=== PATIENT | female | born 1945 | race Caucasian/White ===

== ENCOUNTER 2024-03-27 10:34 | Inpatient (IN) ==
[2024-03-27] MEDS ORDERED: IOPAMIDOL 100 ML BOTTLE IV ONE (10:35)
[2024-03-27 11:39] LABS: Basophils # (Auto) 0 K/mcL (0.00-0.30); Basophils % (Auto) 0 % (0.0-2.0); Eosinophils # (Auto) 0 K/mcL (0.00-0.70); Eosinophils % (Auto) 0 % (0.0-7.0); Hematocrit 35.1 % (34.1-44.9); Hemoglobin 11.3 g/dL (11.2-15.7); Lymphocytes # (Auto) 0.12 K/mcL (1.50-4.80); Lymphocytes % (Auto) 1.2 % (15.5-49.0); Mean Cell Volume 95.6 fL (80.0-100.0); Mean Corpuscular HGB Conc 32.2 g/dL (31.0-36.0); Mean Platelet Volume 9.4 fL (8.8-12.5); Monocytes # (Auto) 0.22 K/mcL (0.10-0.90); Monocytes % (Auto) 2.3 % (1.0-12.0); Neutrophils % (Auto) 96.4 % (38.0-78.0); Platelet Count 196 K/mcL (140-440); RBC 3.67 M/mcL (3.59-5.38); Red Cell Distribution Width 14.6 % (11.5-14.5); WBC 9.7 K/mcL (4.5-11.0)
[2024-03-27 11:59] LABS: ALT/SGPT 11 U/L (<40); AST/SGOT 24 U/L (<32); Albumin 3.1 gm/dL (3.2-5.2); Alkaline Phosphatase 60 U/L (39-117); Bilirubin,Total 1.9 mg/dL (0.1-1.0); Blood Urea Nitrogen 27 mg/dL (8-23); Calcium 8.8 mg/dL (8.6-10.4); Carbon Dioxide 27 mmol/L (22-30); Chloride 100 mmol/L (96-108); Creatine Kinase 77 U/L (24-170); Globulin 3.1 gm/dL (2.2-3.7); Glomerular Filtration Rate 69; Glucose 113 mg/dL (70-105); INR 1.1 (0.9-1.1); Potassium 4.3 mmol/L (3.3-5.1); Prothrombin Time 14.6 sec (11.9-14.5); Sodium 138 mmol/L (133-145)
[2024-03-27 12:22] LABS: Appearance,Urine Clear (Clear); Bacteria,Urine Few /hpf (0); Bilirubin,Urine Moderate mg/dL (Negative); Color,Urine Amber; Glucose,Urine (UA) 100 mg/dL (Negative); Ketones,Urine 15 mg/dL (Negative); Leukocyte Esterase,Urine Negative /uL (Negative); Nitrate,Urine Negative (Negative); PH,Urine 5.5 (5.0-9.0); Protein,Urine 30 mg/dL (Negative); Urine Blood Negative ery/mcL (Negative); Urine RBC 0 /hpf (0-3); Urine Squamous Epithelial Cell 0 /hpf (0-4); Urine WBC 0 /hpf (0-4)
[2024-03-27 12:27] LABS: Free T4 (Free Thyroxine) 0.97 ng/dL (0.93-1.70)
[2024-03-27] MEDS: cefTRIAXone 1 GM VIAL IV ONE (13:34)
[2024-03-27] MEDS: AZITHROMYCIN 500 MG in DEXTROSE 5% IN WATER 250 ML IV ONE (15:17)
[2024-03-27] MEDS: DEXTROSE 5%-NS 1,000 ML IV SCH (15:56)
[2024-03-27] MEDS: DOXYCYCLINE 100 MG in DEXTROSE 5% IN WATER 100 ML IV SCH ×2 (15:59→17:59)
[2024-03-27] MEDS: THIAMINE 100 MG in 0.9 % SODIUM CHLORIDE 50 ML IV ONE (16:35)
[2024-03-27] MEDS ORDERED: ACETAMINOPHEN 325 MG TABLET PO PRN (16:53)
[2024-03-27] MEDS ORDERED: IPRATROPIUM/ALBUTEROL 3 ML AMPUL.NEB NEB PRN (16:53)
[2024-03-27 17:19] LABS: Free T4 (Free Thyroxine) 0.91 ng/dL (0.93-1.70); Phosphorous 3.1 mg/dL (2.5-4.5); Thyroid Stimulating Hormone 3.65 uIU/mL (0.27-5.01)
[2024-03-27] MEDS: 0.9 % SODIUM CHLORIDE 10 ML SYRINGE IV SCH (20:34)
[2024-03-28 07:10] LABS: Basophils # (Auto) 0 K/mcL (0.00-0.30); Basophils % (Auto) 0 % (0.0-2.0); Eosinophils # (Auto) 0.01 K/mcL (0.00-0.70); Eosinophils % (Auto) 0.1 % (0.0-7.0); Hematocrit 29.5 % (34.1-44.9); Hemoglobin 10.1 g/dL (11.2-15.7); Lymphocytes # (Auto) 0.35 K/mcL (1.50-4.80); Lymphocytes % (Auto) 4.7 % (15.5-49.0); Mean Cell Volume 89.7 fL (80.0-100.0); Mean Corpuscular HGB Conc 34.2 g/dL (31.0-36.0); Mean Platelet Volume 8.8 fL (8.8-12.5); Monocytes % (Auto) 2.7 % (1.0-12.0); Neutrophils % (Auto) 92.4 % (38.0-78.0); Platelet Count 192 K/mcL (140-440); RBC 3.29 M/mcL (3.59-5.38); Red Cell Distribution Width 14.5 % (11.5-14.5); WBC 7.5 K/mcL (4.5-11.0)
[2024-03-28 07:26] LABS: ALT/SGPT 9 U/L (<40); AST/SGOT 15 U/L (<32); Albumin 2.6 gm/dL (3.2-5.2); Alkaline Phosphatase 57 U/L (39-117); Bilirubin,Direct 0.4 mg/dL (<0.3); Bilirubin,Total 0.6 mg/dL (0.1-1.0); Blood Urea Nitrogen 20 mg/dL (8-23); Carbon Dioxide 25 mmol/L (22-30); Chloride 107 mmol/L (96-108); Globulin 2.5 gm/dL (2.2-3.7); Glomerular Filtration Rate 91; Glucose 95 mg/dL (70-105); Lactate Dehydrogenase 135 U/L (135-225); Phosphorous 2.2 mg/dL (2.5-4.5); Potassium 3.2 mmol/L (3.3-5.1); Sodium 141 mmol/L (133-145); Triglycerides 78 mg/dL (<150); Uric Acid 4.4 mg/dL (2.5-8.0)
[2024-03-28 07:45] LABS: Iron 12 ug/dL (37-145); TIBC Calculation 109 ug/dl (228-428); Transferrin % Saturation 11 % (15-50)
[2024-03-28] MEDS: POTASSIUM CHLORIDE 20 MEQ PACKET PO ONE (08:52)
[2024-03-28] MEDS: cefTRIAXone 1 GM VIAL IV SCH (09:32)
[2024-03-28] MEDS: ENOXAPARIN 40 MG/0.4 ML SYRINGE SQ SCH (09:33)
[2024-03-28] MEDS: POTASSIUM PHOSPHATE 40 MEQ in DEXTROSE 5% IN WATER 500 ML IV ONE (09:55)
[2024-03-28] MEDS: CALCIUM GLUCONATE 4.65 MEQ in DEXTROSE 5% IN WATER 50 ML IV ONE (11:58)
[2024-03-28] MEDS: DEXTROSE 5%-NS 1,000 ML IV SCH (12:45)
[2024-03-28] MEDS: NYSTATIN 500,000 UNITS/5 ML ORAL.SUSP SSP SCH (16:43)
[2024-03-28 17:06] LABS: Phosphorous 4.3 mg/dL (2.5-4.5)
[2024-03-28 17:25] LABS: Blood Urea Nitrogen 18 mg/dL (8-23); Carbon Dioxide 24 mmol/L (22-30); Chloride 101 mmol/L (96-108); Glomerular Filtration Rate 85; Glucose 109 mg/dL (70-105); Potassium 3.6 mmol/L (3.3-5.1); Sodium 137 mmol/L (133-145)
[2024-03-28] MEDS: IRON DEXTRAN 1,000 MG in 0.9 % SODIUM CHLORIDE 500 ML IV ONE (18:33)
[2024-03-29 06:56] LABS: Basophils # (Auto) 0 K/mcL (0.00-0.30); Basophils % (Auto) 0 % (0.0-2.0); Eosinophils # (Auto) 0.02 K/mcL (0.00-0.70); Eosinophils % (Auto) 0.3 % (0.0-7.0); Hematocrit 31.3 % (34.1-44.9); Hemoglobin 10.7 g/dL (11.2-15.7); Lymphocytes # (Auto) 0.34 K/mcL (1.50-4.80); Lymphocytes % (Auto) 5.2 % (15.5-49.0); Mean Cell Volume 88.7 fL (80.0-100.0); Mean Corpuscular HGB Conc 34.2 g/dL (31.0-36.0); Mean Platelet Volume 8.7 fL (8.8-12.5); Monocytes # (Auto) 0.24 K/mcL (0.10-0.90); Monocytes % (Auto) 3.7 % (1.0-12.0); Neutrophils % (Auto) 90.6 % (38.0-78.0); Platelet Count 168 K/mcL (140-440); RBC 3.53 M/mcL (3.59-5.38); Red Cell Distribution Width 14.4 % (11.5-14.5); WBC 6.6 K/mcL (4.5-11.0)
[2024-03-29 07:53] LABS: ALT/SGPT 9 U/L (<40); AST/SGOT 17 U/L (<32); Albumin 2.5 gm/dL (3.2-5.2); Alkaline Phosphatase 62 U/L (39-117); Bilirubin,Direct 0.3 mg/dL (<0.3); Bilirubin,Total 0.5 mg/dL (0.1-1.0); Blood Urea Nitrogen 11 mg/dL (8-23); Calcium 7.6 mg/dL (8.6-10.4); Carbon Dioxide 24 mmol/L (22-30); Chloride 105 mmol/L (96-108); Globulin 2.4 gm/dL (2.2-3.7); Glomerular Filtration Rate 98; Glucose 108 mg/dL (70-105); Lactate Dehydrogenase 139 U/L (135-225); Phosphorous 2.2 mg/dL (2.5-4.5); Potassium 2.9 mmol/L (3.3-5.1); Sodium 138 mmol/L (133-145); Triglycerides 82 mg/dL (<150); Uric Acid 2.8 mg/dL (2.5-8.0)
[2024-03-29] MEDS: POTASSIUM PHOSPHATE 20 MEQ in DEXTROSE 5% IN WATER 250 ML IV ONE (11:23)
[2024-03-29] MEDS: POTASSIUM CHLORIDE 10 MEQ/100 ML BAG IV SCH (14:23)
[2024-03-29 20:48] LABS: Phosphorous 2.1 mg/dL (2.5-4.5)
[2024-03-29 20:56] LABS: Potassium 4.2 mmol/L (3.3-5.1)
[2024-03-29] MEDS: CALCIUM GLUCONATE 9.3 MEQ in DEXTROSE 5% IN WATER 50 ML IV ONE (22:36)
[2024-03-29] MEDS: MAGNESIUM SULFATE 2 GM/50 ML BAG IV ONE (22:40)
[2024-03-29] MEDS: SODIUM PHOSPHATE 30 MMOL in DEXTROSE 5% IN WATER 500 ML IV ONE (23:20)
[2024-03-29] MEDS: CALCIUM GLUCONATE 4.65 MEQ/10 ML VIAL ONE (23:21)
[2024-03-30 07:06] LABS: Basophils # (Auto) 0.01 K/mcL (0.00-0.30); Basophils % (Auto) 0.2 % (0.0-2.0); Eosinophils # (Auto) 0.01 K/mcL (0.00-0.70); Eosinophils % (Auto) 0.2 % (0.0-7.0); Hematocrit 29.7 % (34.1-44.9); Lymphocytes # (Auto) 0.39 K/mcL (1.50-4.80); Lymphocytes % (Auto) 6.2 % (15.5-49.0); Mean Cell Volume 90.8 fL (80.0-100.0); Mean Corpuscular HGB Conc 33.7 g/dL (31.0-36.0); Mean Platelet Volume 8.8 fL (8.8-12.5); Monocytes % (Auto) 6.4 % (1.0-12.0); Neutrophils % (Auto) 86.7 % (38.0-78.0); Platelet Count 175 K/mcL (140-440); RBC 3.27 M/mcL (3.59-5.38); Red Cell Distribution Width 14.2 % (11.5-14.5); WBC 6.3 K/mcL (4.5-11.0)
[2024-03-30 07:27] LABS: ALT/SGPT 9 U/L (<40); AST/SGOT 17 U/L (<32); Albumin 2.6 gm/dL (3.2-5.2); Alkaline Phosphatase 65 U/L (39-117); Bilirubin,Direct 0.3 mg/dL (<0.3); Bilirubin,Total 0.5 mg/dL (0.1-1.0); Blood Urea Nitrogen 5 mg/dL (8-23); Calcium 7.6 mg/dL (8.6-10.4); Carbon Dioxide 23 mmol/L (22-30); Chloride 96 mmol/L (96-108); Globulin 2.5 gm/dL (2.2-3.7); Glomerular Filtration Rate 98; Glucose 96 mg/dL (70-105); Lactate Dehydrogenase 171 U/L (135-225); Phosphorous 5.1 mg/dL (2.5-4.5); Potassium 3.5 mmol/L (3.3-5.1); Sodium 131 mmol/L (133-145); Triglycerides 89 mg/dL (<150); Uric Acid 1.8 mg/dL (2.5-8.0)
[2024-03-30] MEDS ORDERED: LIDOCAINE 2% URO-JET 10 ML JEL.PF.APP UR ONE (15:18)
[2024-03-30] MEDS ORDERED: DIATRIZOATE MEGLU/DIATRIZO SOD 120ML BOTTLE PO ONE (15:18)
[2024-03-30 20:49] LABS: ALT/SGPT 9 U/L (<40); AST/SGOT 20 U/L (<32); Albumin 2.8 gm/dL (3.2-5.2); Alkaline Phosphatase 71 U/L (39-117); Bilirubin,Direct 0.3 mg/dL (<0.3); Bilirubin,Total 0.6 mg/dL (0.1-1.0); Blood Urea Nitrogen 6 mg/dL (8-23); Calcium 7.8 mg/dL (8.6-10.4); Carbon Dioxide 26 mmol/L (22-30); Chloride 96 mmol/L (96-108); Globulin 2.8 gm/dL (2.2-3.7); Glomerular Filtration Rate 98; Glucose 98 mg/dL (70-105); Lactate Dehydrogenase 246 U/L (135-225); Phosphorous 3.1 mg/dL (2.5-4.5); Potassium 3.1 mmol/L (3.3-5.1); Sodium 131 mmol/L (133-145); Triglycerides 90 mg/dL (<150); Uric Acid 1.8 mg/dL (2.5-8.0)
[2024-03-31 06:37] LABS: Basophils # (Auto) 0 K/mcL (0.00-0.30); Basophils % (Auto) 0 % (0.0-2.0); Eosinophils # (Auto) 0.01 K/mcL (0.00-0.70); Eosinophils % (Auto) 0.2 % (0.0-7.0); Hematocrit 30.6 % (34.1-44.9); Hemoglobin 10.3 g/dL (11.2-15.7); Lymphocytes % (Auto) 8.9 % (15.5-49.0); Mean Cell Volume 89.7 fL (80.0-100.0); Mean Corpuscular HGB Conc 33.7 g/dL (31.0-36.0); Mean Platelet Volume 8.9 fL (8.8-12.5); Monocytes # (Auto) 0.41 K/mcL (0.10-0.90); Monocytes % (Auto) 9.1 % (1.0-12.0); Neutrophils % (Auto) 81.4 % (38.0-78.0); Platelet Count 147 K/mcL (140-440); RBC 3.41 M/mcL (3.59-5.38); WBC 4.5 K/mcL (4.5-11.0)
[2024-03-31 06:44] LABS: ALT/SGPT 8 U/L (<40); AST/SGOT 17 U/L (<32); Albumin 2.7 gm/dL (3.2-5.2); Albumin/Globulin Ratio 1.1 (1.0-2.3); Alkaline Phosphatase 64 U/L (39-117); Bilirubin,Direct 0.2 mg/dL (<0.3); Bilirubin,Total 0.5 mg/dL (0.1-1.0); Blood Urea Nitrogen 7 mg/dL (8-23); Carbon Dioxide 27 mmol/L (22-30); Chloride 99 mmol/L (96-108); Globulin 2.5 gm/dL (2.2-3.7); Glomerular Filtration Rate 98; Glucose 82 mg/dL (70-105); Lactate Dehydrogenase 175 U/L (135-225); Phosphorous 2.8 mg/dL (2.5-4.5); Potassium 3.3 mmol/L (3.3-5.1); Sodium 134 mmol/L (133-145); Triglycerides 103 mg/dL (<150)
[2024-03-31] MEDS: POTASSIUM CHLORIDE 20 MEQ PACKET PO ONE (10:34)
[2024-03-31] MEDS: POTASSIUM CHLORIDE 20 MEQ/15 ML ML PT SCH (11:35)
[2024-04-01 06:04] LABS: Basophils # (Auto) 0.01 K/mcL (0.00-0.30); Basophils % (Auto) 0.3 % (0.0-2.0); Eosinophils # (Auto) 0.01 K/mcL (0.00-0.70); Eosinophils % (Auto) 0.3 % (0.0-7.0); Hematocrit 33.2 % (34.1-44.9); Lymphocytes # (Auto) 0.49 K/mcL (1.50-4.80); Lymphocytes % (Auto) 13.9 % (15.5-49.0); Mean Corpuscular HGB Conc 33.1 g/dL (31.0-36.0); Mean Platelet Volume 8.8 fL (8.8-12.5); Monocytes # (Auto) 0.51 K/mcL (0.10-0.90); Monocytes % (Auto) 14.4 % (1.0-12.0); Neutrophils % (Auto) 70.5 % (38.0-78.0); Platelet Count 153 K/mcL (140-440); RBC 3.61 M/mcL (3.59-5.38); Red Cell Distribution Width 14.2 % (11.5-14.5); WBC 3.5 K/mcL (4.5-11.0)
[2024-04-01 06:54] LABS: ALT/SGPT 9 U/L (<40); AST/SGOT 18 U/L (<32); Albumin 2.9 gm/dL (3.2-5.2); Alkaline Phosphatase 69 U/L (39-117); Bilirubin,Direct 0.2 mg/dL (<0.3); Bilirubin,Total 0.5 mg/dL (0.1-1.0); Blood Urea Nitrogen 8 mg/dL (8-23); Calcium 8.3 mg/dL (8.6-10.4); Carbon Dioxide 27 mmol/L (22-30); Chloride 98 mmol/L (96-108); Globulin 2.9 gm/dL (2.2-3.7); Glomerular Filtration Rate 91; Glucose 90 mg/dL (70-105); Lactate Dehydrogenase 173 U/L (135-225); Phosphorous 2.3 mg/dL (2.5-4.5); Potassium 3.9 mmol/L (3.3-5.1); Sodium 134 mmol/L (133-145); Triglycerides 127 mg/dL (<150); Uric Acid 2.1 mg/dL (2.5-8.0)
[2024-04-01] MEDS: SODIUM PHOSPHATE 15 MMOL in DEXTROSE 5% IN WATER 250 ML IV ONE (09:58)
[2024-04-02 06:57] LABS: ALT/SGPT 8 U/L (<40); AST/SGOT 18 U/L (<32); Albumin 3.1 gm/dL (3.2-5.2); Albumin/Globulin Ratio 1.1 (1.0-2.3); Alkaline Phosphatase 67 U/L (39-117); Bilirubin,Direct 0.2 mg/dL (<0.3); Bilirubin,Total 0.4 mg/dL (0.1-1.0); Blood Urea Nitrogen 8 mg/dL (8-23); Calcium 8.7 mg/dL (8.6-10.4); Carbon Dioxide 27 mmol/L (22-30); Chloride 96 mmol/L (96-108); Globulin 2.9 gm/dL (2.2-3.7); Glomerular Filtration Rate 91; Glucose 84 mg/dL (70-105); Lactate Dehydrogenase 185 U/L (135-225); Potassium 3.6 mmol/L (3.3-5.1); Sodium 134 mmol/L (133-145); Triglycerides 126 mg/dL (<150); Uric Acid 2.1 mg/dL (2.5-8.0)
[2024-04-02] MEDS: SODIUM CHLORIDE 154 MEQ in WATER FOR INJECTION,STERILE 961.5 ML IV SCH (14:30)
[2024-04-02] MEDS: 0.9 % SODIUM CHLORIDE 1,000 ML IV SCH (14:35)
[2024-04-03] MEDS: 0.9 % SODIUM CHLORIDE 500 ML IV SCH (06:16)
[2024-04-03 06:59] LABS: Basophils # (Auto) 0.02 K/mcL (0.00-0.30); Basophils % (Auto) 0.8 % (0.0-2.0); Eosinophils # (Auto) 0.03 K/mcL (0.00-0.70); Eosinophils % (Auto) 1.1 % (0.0-7.0); Hematocrit 37.3 % (34.1-44.9); Hemoglobin 12.3 g/dL (11.2-15.7); Lymphocytes # (Auto) 0.45 K/mcL (1.50-4.80); Lymphocytes % (Auto) 16.9 % (15.5-49.0); Mean Cell Volume 92.8 fL (80.0-100.0); Mean Platelet Volume 8.9 fL (8.8-12.5); Neutrophils % (Auto) 65.1 % (38.0-78.0); Platelet Count 145 K/mcL (140-440); RBC 4.02 M/mcL (3.59-5.38); WBC 2.7 K/mcL (4.5-11.0)
[2024-04-03 07:11] LABS: ALT/SGPT 6 U/L (<40); AST/SGOT 20 U/L (<32); Albumin 3.1 gm/dL (3.2-5.2); Albumin/Globulin Ratio 1.1 (1.0-2.3); Alkaline Phosphatase 61 U/L (39-117); Bilirubin,Direct 0.2 mg/dL (<0.3); Bilirubin,Total 0.6 mg/dL (0.1-1.0); Blood Urea Nitrogen 9 mg/dL (8-23); Calcium 8.4 mg/dL (8.6-10.4); Carbon Dioxide 24 mmol/L (22-30); Chloride 98 mmol/L (96-108); Globulin 2.8 gm/dL (2.2-3.7); Glomerular Filtration Rate 91; Glucose 69 mg/dL (70-105); Lactate Dehydrogenase 195 U/L (135-225); Phosphorous 2.4 mg/dL (2.5-4.5); Potassium 3.6 mmol/L (3.3-5.1); Sodium 134 mmol/L (133-145); Triglycerides 121 mg/dL (<150); Uric Acid 2.7 mg/dL (2.5-8.0)
[2024-04-03] MEDS ORDERED: DEXTROSE 50% 50 ML SYRINGE IV PRN (08:07)
[2024-04-03] MEDS ORDERED: DEXAMETHASONE 10 MG/ML VIAL ONE (14:41)
[2024-04-03] MEDS ORDERED: KETAMINE 50 MG/ML Syringe IV ONE (14:41)
[2024-04-03] MEDS ORDERED: PROPOFOL 200 MG/20 ML VIAL IV ONE (14:41)
[2024-04-03] MEDS ORDERED: ePHEDrine 50 MG/5 ML SYRINGE (ANEST) IV ONE (14:41)
[2024-04-03] MEDS ORDERED: METOCLOPRAMIDE 10 MG/2 ML VIAL ONE (14:41)
[2024-04-03] MEDS ORDERED: LIDOCAINE 2% PF 5 ML VIAL ONE (14:41)
[2024-04-03] MEDS ORDERED: ONDANSETRON 4 MG/2 ML VIAL ONE (14:41)
[2024-04-03] MEDS ORDERED: PHENYLephrine 1 MG/10 ML SYRINGE (ANEST) ONE (14:41)
[2024-04-03] MEDS ORDERED: SUCCINYLCHOLINE 200 MG/10 ML VIAL IV ONE (14:41)
[2024-04-03] MEDS ORDERED: GLYCOPYRROLATE 0.2 MG/ML VIAL IV ONE (14:41)
[2024-04-03] MEDS ORDERED: HYDROmorphone 0.5 MG/0.5 ML SYRINGE IV PRN (16:20)
[2024-04-03] MEDS ORDERED: IPRATROPIUM/ALBUTEROL 3 ML AMPUL.NEB NEB PRN (16:20)
[2024-04-03] MEDS ORDERED: NALOXONE HCL 0.4 MG/ML VIAL IV PRN (16:20)
[2024-04-03] MEDS ORDERED: ONDANSETRON 4 MG/2 ML VIAL IV PRN (16:20)
[2024-04-03] MEDS ORDERED: fentaNYL 100 MCG/2 ML VIAL IV PRN (16:20)
[2024-04-03] MEDS: LACTATED RINGERS 1,000 ML IV SCH (16:30)
[2024-04-04] MEDS: ACETAMINOPHEN 1,000 MG/100 ML BAG IV PRN (00:43)
[2024-04-04] MEDS: ACETAMINOPHEN 1,000 MG/100 ML BAG IV ONE (01:17)
[2024-04-04 06:52] LABS: Basophils # (Auto) 0.01 K/mcL (0.00-0.30); Basophils % (Auto) 0.2 % (0.0-2.0); Eosinophils # (Auto) 0 K/mcL (0.00-0.70); Eosinophils % (Auto) 0 % (0.0-7.0); Hematocrit 39.6 % (34.1-44.9); Hemoglobin 12.7 g/dL (11.2-15.7); Lymphocytes # (Auto) 0.34 K/mcL (1.50-4.80); Lymphocytes % (Auto) 7.9 % (15.5-49.0); Mean Cell Volume 95.9 fL (80.0-100.0); Mean Corpuscular HGB Conc 32.1 g/dL (31.0-36.0); Mean Platelet Volume 8.9 fL (8.8-12.5); Monocytes # (Auto) 0.24 K/mcL (0.10-0.90); Monocytes % (Auto) 5.6 % (1.0-12.0); Neutrophils % (Auto) 85.4 % (38.0-78.0); Platelet Count 172 K/mcL (140-440); RBC 4.13 M/mcL (3.59-5.38); Red Cell Distribution Width 14.2 % (11.5-14.5); WBC 4.3 K/mcL (4.5-11.0)
[2024-04-04 07:13] LABS: ALT/SGPT 7 U/L (<40); AST/SGOT 20 U/L (<32); Albumin 3.4 gm/dL (3.2-5.2); Albumin/Globulin Ratio 1.1 (1.0-2.3); Alkaline Phosphatase 63 U/L (39-117); Bilirubin,Direct 0.2 mg/dL (<0.3); Bilirubin,Total 0.5 mg/dL (0.1-1.0); Blood Urea Nitrogen 15 mg/dL (8-23); Calcium 8.6 mg/dL (8.6-10.4); Carbon Dioxide 23 mmol/L (22-30); Chloride 97 mmol/L (96-108); Glomerular Filtration Rate 85; Glucose 87 mg/dL (70-105); Lactate Dehydrogenase 206 U/L (135-225); Phosphorous 3.1 mg/dL (2.5-4.5); Potassium 3.8 mmol/L (3.3-5.1); Sodium 135 mmol/L (133-145); Triglycerides 107 mg/dL (<150); Uric Acid 3.5 mg/dL (2.5-8.0)
[2024-04-05] MEDS: ACETAMINOPHEN 500 MG/50 ML BAG IV PRN (03:28)
[2024-04-05] MEDS: ONDANSETRON 4 MG/2 ML VIAL IV PRN (03:57)
[2024-04-05 07:01] LABS: Basophils # (Auto) 0.03 K/mcL (0.00-0.30); Basophils % (Auto) 0.7 % (0.0-2.0); Eosinophils # (Auto) 0.02 K/mcL (0.00-0.70); Eosinophils % (Auto) 0.5 % (0.0-7.0); Hematocrit 29.5 % (34.1-44.9); Hemoglobin 9.9 g/dL (11.2-15.7); Lymphocytes # (Auto) 0.53 K/mcL (1.50-4.80); Lymphocytes % (Auto) 12.4 % (15.5-49.0); Mean Cell Volume 91.6 fL (80.0-100.0); Mean Corpuscular HGB Conc 33.6 g/dL (31.0-36.0); Mean Platelet Volume 8.8 fL (8.8-12.5); Monocytes # (Auto) 0.37 K/mcL (0.10-0.90); Monocytes % (Auto) 8.6 % (1.0-12.0); Neutrophils % (Auto) 77.3 % (38.0-78.0); Platelet Count 173 K/mcL (140-440); RBC 3.22 M/mcL (3.59-5.38); Red Cell Distribution Width 14.3 % (11.5-14.5); WBC 4.3 K/mcL (4.5-11.0)
[2024-04-05 07:04] LABS: ALT/SGPT 6 U/L (<40); AST/SGOT 15 U/L (<32); Albumin 2.8 gm/dL (3.2-5.2); Albumin/Globulin Ratio 1.3 (1.0-2.3); Alkaline Phosphatase 58 U/L (39-117); Bilirubin,Direct < 0.2 mg/dL (0-0.3); Bilirubin,Total 0.3 mg/dL (0.1-1.0); Blood Urea Nitrogen 27 mg/dL (8-23); Calcium 8.1 mg/dL (8.6-10.4); Carbon Dioxide 27 mmol/L (22-30); Chloride 102 mmol/L (96-108); Globulin 2.1 gm/dL (2.2-3.7); Glomerular Filtration Rate 91; Glucose 112 mg/dL (70-105); Lactate Dehydrogenase 154 U/L (135-225); Potassium 3.4 mmol/L (3.3-5.1); Sodium 137 mmol/L (133-145); Triglycerides 105 mg/dL (<150); Uric Acid 3.6 mg/dL (2.5-8.0)
[2024-04-06 06:55] LABS: Basophils # (Auto) 0.03 K/mcL (0.00-0.30); Basophils % (Auto) 0.6 % (0.0-2.0); Eosinophils # (Auto) 0.03 K/mcL (0.00-0.70); Eosinophils % (Auto) 0.6 % (0.0-7.0); Hematocrit 32.2 % (34.1-44.9); Hemoglobin 10.4 g/dL (11.2-15.7); Lymphocytes # (Auto) 0.44 K/mcL (1.50-4.80); Lymphocytes % (Auto) 9.1 % (15.5-49.0); Mean Cell Volume 94.4 fL (80.0-100.0); Mean Corpuscular HGB Conc 32.3 g/dL (31.0-36.0); Mean Platelet Volume 9.3 fL (8.8-12.5); Monocytes # (Auto) 0.33 K/mcL (0.10-0.90); Monocytes % (Auto) 6.8 % (1.0-12.0); Neutrophils % (Auto) 82.7 % (38.0-78.0); Platelet Count 140 K/mcL (140-440); RBC 3.41 M/mcL (3.59-5.38); Red Cell Distribution Width 14.4 % (11.5-14.5); WBC 4.9 K/mcL (4.5-11.0)
[2024-04-06 07:17] LABS: ALT/SGPT 7 U/L (<40); AST/SGOT 17 U/L (<32); Albumin 2.9 gm/dL (3.2-5.2); Albumin/Globulin Ratio 1.3 (1.0-2.3); Alkaline Phosphatase 75 U/L (39-117); Bilirubin,Direct < 0.2 mg/dL (0-0.3); Bilirubin,Total 0.3 mg/dL (0.1-1.0); Blood Urea Nitrogen 25 mg/dL (8-23); Carbon Dioxide 27 mmol/L (22-30); Chloride 99 mmol/L (96-108); Globulin 2.2 gm/dL (2.2-3.7); Glomerular Filtration Rate 98; Glucose 113 mg/dL (70-105); Lactate Dehydrogenase 162 U/L (135-225); Phosphorous 1.7 mg/dL (2.5-4.5); Potassium 4.2 mmol/L (3.3-5.1); Sodium 135 mmol/L (133-145); Triglycerides 103 mg/dL (<150); Uric Acid 2.4 mg/dL (2.5-8.0)
[2024-04-06] MEDS: POTASSIUM CHLORIDE 20 MEQ/15 ML ML PT SCH (07:44)
[2024-04-06] MEDS ORDERED: HYDROCORTISONE OP SCH (15:00)
[2024-04-06] MEDS ORDERED: [UNRECOGNIZED DRUG - OTHER] OP SCH (15:00)
[2024-04-06] MEDS ORDERED: NEOMYCIN OP SCH (15:00)
[2024-04-06] MEDS: POLYETHYLENE GLYCOL 3350 17 GM PACKET PO PRN (17:14)
[2024-04-07 06:37] LABS: Basophils # (Auto) 0.04 K/mcL (0.00-0.30); Basophils % (Auto) 1.1 % (0.0-2.0); Eosinophils # (Auto) 0.04 K/mcL (0.00-0.70); Eosinophils % (Auto) 1.1 % (0.0-7.0); Hematocrit 30.8 % (34.1-44.9); Hemoglobin 9.9 g/dL (11.2-15.7); Lymphocytes % (Auto) 13.2 % (15.5-49.0); Mean Cell Volume 93.6 fL (80.0-100.0); Mean Corpuscular HGB Conc 32.1 g/dL (31.0-36.0); Mean Platelet Volume 9.2 fL (8.8-12.5); Monocytes # (Auto) 0.31 K/mcL (0.10-0.90); Monocytes % (Auto) 8.2 % (1.0-12.0); Neutrophils % (Auto) 76.1 % (38.0-78.0); Platelet Count 157 K/mcL (140-440); RBC 3.29 M/mcL (3.59-5.38); Red Cell Distribution Width 14.7 % (11.5-14.5); WBC 3.8 K/mcL (4.5-11.0)
[2024-04-07 06:55] LABS: ALT/SGPT 11 U/L (<40); AST/SGOT 19 U/L (<32); Albumin 2.9 gm/dL (3.2-5.2); Albumin/Globulin Ratio 1.5 (1.0-2.3); Alkaline Phosphatase 77 U/L (39-117); Bilirubin,Direct < 0.2 mg/dL (0-0.3); Bilirubin,Total 0.4 mg/dL (0.1-1.0); Blood Urea Nitrogen 24 mg/dL (8-23); Calcium 8.2 mg/dL (8.6-10.4); Carbon Dioxide 28 mmol/L (22-30); Chloride 99 mmol/L (96-108); Globulin 1.9 gm/dL (2.2-3.7); Glomerular Filtration Rate 98; Glucose 117 mg/dL (70-105); Lactate Dehydrogenase 149 U/L (135-225); Phosphorous 2.6 mg/dL (2.5-4.5); Potassium 4.6 mmol/L (3.3-5.1); Sodium 135 mmol/L (133-145); Triglycerides 105 mg/dL (<150); Uric Acid 2.1 mg/dL (2.5-8.0)
[2024-04-07] MEDS: amLODIPine 5 MG TABLET PO SCH (09:23)
[2024-04-07] MEDS: GABAPENTIN 300 MG CAPSULE PO SCH (09:24)
== END 2024-04-07 11:35 | DRG 947 ==
LOC: ED 10:34 → MEDSUR 16:42
PROVIDERS: ADMIT Student in an Organized Health Care Education/Training Program; ATTEND Internal Medicine

== ENCOUNTER 2024-04-14 11:18 | Observation (INO) ==
[2024-04-14 13:10] LABS: Basophils # (Auto) 0.04 K/mcL (0.00-0.30); Eosinophils # (Auto) 0.09 K/mcL (0.00-0.70); Eosinophils % (Auto) 2.3 % (0.0-7.0); Hematocrit 34.1 % (34.1-44.9); Hemoglobin 10.8 g/dL (11.2-15.7); Lymphocytes # (Auto) 0.57 K/mcL (1.50-4.80); Lymphocytes % (Auto) 14.7 % (15.5-49.0); Mean Cell Volume 98.3 fL (80.0-100.0); Mean Corpuscular HGB Conc 31.7 g/dL (31.0-36.0); Mean Platelet Volume 9.1 fL (8.8-12.5); Monocytes # (Auto) 0.27 K/mcL (0.10-0.90); Neutrophils % (Auto) 74.7 % (38.0-78.0); Platelet Count 204 K/mcL (140-440); RBC 3.47 M/mcL (3.59-5.38); Red Cell Distribution Width 16.9 % (11.5-14.5); WBC 3.9 K/mcL (4.5-11.0)
[2024-04-14 13:26] LABS: ALT/SGPT 50 U/L (<40); AST/SGOT 59 U/L (<32); Albumin 3.4 gm/dL (3.2-5.2); Albumin/Globulin Ratio 1.3 (1.0-2.3); Alkaline Phosphatase 90 U/L (39-117); Bilirubin,Total 0.5 mg/dL (0.1-1.0); Blood Urea Nitrogen 31 mg/dL (8-23); Carbon Dioxide 30 mmol/L (22-30); Chloride 98 mmol/L (96-108); Globulin 2.6 gm/dL (2.2-3.7); Glomerular Filtration Rate 91; Glucose 89 mg/dL (70-105); Potassium 4.7 mmol/L (3.3-5.1); Sodium 136 mmol/L (133-145)
[2024-04-14] MEDS: LACTATED RINGERS 1,000 ML IV SCH (14:55)
[2024-04-14] MEDS: 0.9 % SODIUM CHLORIDE 1,000 ML IV SCH (15:07)
[2024-04-15] MEDS: PANTOPRAZOLE 40 MG VIAL IV SCH (08:15)
[2024-04-15] MEDS ORDERED: LIDOCAINE 2% PF 5 ML VIAL ONE (10:00)
[2024-04-15] MEDS ORDERED: ONDANSETRON 4 MG/2 ML VIAL ONE (10:01)
[2024-04-15] MEDS ORDERED: METOCLOPRAMIDE 10 MG/2 ML VIAL ONE (10:01)
[2024-04-15] MEDS ORDERED: DEXAMETHASONE 10 MG/ML VIAL ONE (10:01)
[2024-04-15] MEDS ORDERED: PROPOFOL 200 MG/20 ML VIAL IV ONE (10:01)
[2024-04-15] MEDS ORDERED: PHENYLephrine 1 MG/10 ML SYRINGE (ANEST) ONE (10:01)
[2024-04-15] MEDS ORDERED: ePHEDrine 50 MG/5 ML SYRINGE (ANEST) IV ONE (10:01)
[2024-04-15] MEDS ORDERED: KETAMINE 50 MG/ML Syringe IV ONE (10:01)
[2024-04-15] MEDS ORDERED: GLYCOPYRROLATE 0.2 MG/ML VIAL IV ONE (10:01)
[2024-04-15] MEDS: ceFAZolin 2 GM in DEXTROSE 5% IN WATER 50 ML IV SCH (10:40)
[2024-04-15] MEDS ORDERED: IPRATROPIUM/ALBUTEROL 3 ML AMPUL.NEB NEB PRN (11:15)
[2024-04-15] MEDS ORDERED: ONDANSETRON 4 MG/2 ML VIAL IV PRN (11:15)
[2024-04-15] MEDS ORDERED: NALOXONE HCL 0.4 MG/ML VIAL IV PRN (11:15)
[2024-04-15] MEDS ORDERED: fentaNYL 100 MCG/2 ML VIAL IV PRN (11:15)
[2024-04-15] MEDS ORDERED: KETOROLAC 15 MG/ML VIAL IV PRN (11:15)
[2024-04-15] MEDS: LACTATED RINGERS 1,000 ML IV SCH (11:43)
[2024-04-15 12:42] LABS: ALT/SGPT 34 U/L (<40); AST/SGOT 43 U/L (<32); Albumin 3.2 gm/dL (3.2-5.2); Albumin/Globulin Ratio 1.1 (1.0-2.3); Alkaline Phosphatase 83 U/L (39-117); Bilirubin,Direct 0.2 mg/dL (<0.3); Bilirubin,Total 0.5 mg/dL (0.1-1.0); Blood Urea Nitrogen 24 mg/dL (8-23); Calcium 8.3 mg/dL (8.6-10.4); Carbon Dioxide 24 mmol/L (22-30); Chloride 101 mmol/L (96-108); Globulin 2.8 gm/dL (2.2-3.7); Glomerular Filtration Rate 91; Glucose 88 mg/dL (70-105); Lactate Dehydrogenase 196 U/L (135-225); Potassium 4.5 mmol/L (3.3-5.1); Sodium 136 mmol/L (133-145); Triglycerides 120 mg/dL (<150); Uric Acid 4.4 mg/dL (2.5-8.0)
[2024-04-15 15:07] LABS: Prealbumin 25.9 mg/dL (20.0-40.0)
[2024-04-15] MEDS: CHLORHEXIDINE GLUCONATE 15 ML UDC SWABMOUTH SCH (20:35)
[2024-04-16 07:14] LABS: ALT/SGPT 24 U/L (<40); AST/SGOT 31 U/L (<32); Albumin 3.2 gm/dL (3.2-5.2); Albumin/Globulin Ratio 1.5 (1.0-2.3); Alkaline Phosphatase 74 U/L (39-117); Bilirubin,Direct 0.3 mg/dL (<0.3); Bilirubin,Total 0.5 mg/dL (0.1-1.0); Blood Urea Nitrogen 27 mg/dL (8-23); Calcium 8.1 mg/dL (8.6-10.4); Carbon Dioxide 24 mmol/L (22-30); Chloride 102 mmol/L (96-108); Globulin 2.2 gm/dL (2.2-3.7); Glomerular Filtration Rate 85; Glucose 88 mg/dL (70-105); Lactate Dehydrogenase 173 U/L (135-225); Phosphorous 2.9 mg/dL (2.5-4.5); Potassium 4.2 mmol/L (3.3-5.1); Sodium 136 mmol/L (133-145); Triglycerides 99 mg/dL (<150); Uric Acid 4.8 mg/dL (2.5-8.0)
[2024-04-16] MEDS: FLU VACC TS2024-25(65YR UP)/PF 180 MCG/0.5 ML SYRINGE IM ONE (10:49)
== END 2024-04-16 14:04 | disposition hospice, inpatient (51) ==
LOC: ED 11:18 → MEDSUR 11:18
PROVIDERS: ADMIT Family Medicine Adult Medicine; ATTEND Family Medicine Adult Medicine